=== PATIENT | female | born 2000 | race Caucasian/White ===

== ENCOUNTER 2018-05-26 21:19 | Emergency (ER) | payer OTHER ==
[2018-05-26] MEDS: ADACEL/BOOSTRIX VACCINE (DIPHTH/PERTUSS/ACELL/TETANUS)0.5ML SYR (90715) IM (22:20)
[2018-05-26] MEDS: LIDOCAINE 1% MDV 20ML VIAL IM (22:25)
== END 2018-05-26 22:54 | disposition home or self-care (01) ==
LOC: M ED 21:19
DX: S61.012A Laceration without foreign body of left thumb without damage to nail, initial encounter (principal); W26.8XXA Contact with other sharp object(s), not elsewhere classified, initial encounter; Y92.098 Other place in other non-institutional residence as the place of occurrence of the external cause
CPT/HCPCS: 90715

== ENCOUNTER 2018-06-05 21:36 | Emergency (ER) | payer OTHER | END 2018-06-05 21:59 | disposition home or self-care (01) | LOC: M ED 21:36 | DX: Z48.02 Encounter for removal of sutures (principal) | CPT/HCPCS: 99282 ==